=== PATIENT | male | born 1960 | race Two or more races ===

== ENCOUNTER → 2017-05-01 | Outpatient (CLI) | payer MEDICAID, OTHER ==
[2016-07-30 11:17] VITALS: BP 112/68
[~2017-05-01] MED LIST: DAPA5TAB PO; LISI-338 PO; METF500T4 PO
--- NOTE | 2017-05-01 09:08 | RAD ---
Limited ultrasound abdomen 05/01/2017 at 0847 hours Indication: Elevated liver abdomen and obesity Comparison: None available Technique: Sonographic imaging of the liver was performed utilizing grayscale and color Doppler. Findings: There is increased echogenicity of the hepatic parenchyma compatible with mild hepatocellular disease, most commonly hepatic steatosis. This limits evaluation for hepatic masses. Liver measures 15.1 cm in length. The common hepatic duct measures 4 mm. There is no intrahepatic biliary ductal dilatation. There is hepatopedal flow in the main portal vein. Impression: Mild increased echogenicity of the hepatic parenchyma is suggestive of hepatocellular disease, most commonly hepatic steatosis. No intrahepatic biliary ductal dilatation is identified. Limited evaluation for hepatic masses secondary to body habitus and suggestion of hepatic steatosis.
== END | disposition home or self-care (01) ==
LOC: US 08:24
PROVIDERS: ATTEND Family Medicine
DX: K76.0 Fatty (change of) liver, not elsewhere classified (principal); E66.01 Morbid (severe) obesity due to excess calories
CPT/HCPCS: 76705